=== PATIENT | male | born 1970 | race Caucasian/White ===

== ENCOUNTER 2018-11-15 01:33 | Outpatient (CLI) | payer OTHER, SELFPAY ==
[2018-11-15 15:25] LABS: Anion Gap 11.5 mmol/L (3-11); BUN 28 mg/dL (7-18); CO2 28.5 mmol/L (21.0-32.0); CREATININE 1.44 mg/dL (0.70-1.30); Calcium 9.4 mg/dL (8.5-10.1); Chloride 103 mmol/L (98-107); Estimated GFR 52.58 (mL/min/1.73m2); Glucose 132 mg/dL (70-100); Potassium 3.9 mmol/L (3.5-5.1); Sodium 143 mmol/L (136-145)
== END 2018-11-15 01:53 ==
PROVIDERS: PCP Family Medicine; Visit Provider Family Medicine
DX: I10 Essential (primary) hypertension (principal)
CPT/HCPCS: 36415; 80048

== ENCOUNTER 2020-07-31 06:51 | Emergency (ER) | payer OTHER, SELFPAY ==
[2020-07-31 06:58] VITALS: BP 160/102; PULSE 89; RESP 16; TEMP 37.1; O2SAT 97
--- NOTE | 2020-07-31 06:59 | W.ED.GENAD ---
Discharge Plan Disposition Patient Disposition: HOME Condition: Stable Discharge Details Clinical Impression: Knee pain, right Primary Care Provider: Ariana Mccarthy ED Provider: Kana Griffin Home Meds and New Rx's Prescriptions: Continued omeprazole 10 mg capsule,delayed release(DR/EC) 10 mg PO DAILY PRN (Reason: gerd) Qty: 60 RF: 0 chlorthalidone 25 mg tablet 25 mg PO DAILY Qty: 90 RF: 4 Discharge Instructions Instructions: Knee Pain (ED) Additional Instructions: take tylenol and ibuprofen as needed for pain, follow dosing instructions on packaging follow up with orthopedics if pain continues if severe worsening pain or fevers return to the emergency department Referrals: Quan Hadley MD [ [facility] STAFF PHYSICIAN] - Medical Decision Making 49 yo male with hx of htn comes in with right knee pain. He states he has had intermittent knee problems for quite some time and the right knee has been having aches for a week. He was going down his stairs when his knee popped causing pain and he fell down a step and caught himself. Denies hitting head or loc and no preceding symptoms such as chest pain, dyspnea, n/v, abdominal pain. He has full rom of the knee without swelling and no erythema or warmth. Suzan distal senastion and pulses. Has pain along both the lateral and medial joint lines, suspect sprain vs meniscus injury but will xray to evaluate for fx. No findings to suggest septic joint xray negative on my read, stable exam. Offered crutches and knee brace but he declines as he has both at home. Will have him f/u with orthopedics and return precautions given Medical Records Medical records reviewed: Yes I reviewed the patient's medical records. Imaging Data Radiologic Study: Attestation: I personally reviewed and interpreted this imaging study as follows: Imaging: X-Ray My impression: no acute findings HPI General Mode of arrival: wheelchair. Date/Time Provider Initiated Documentation: 07/31/20 06:52. Limitations to Documentation: no limitations. Information obtained by: patient. History of Present Illness 49 year old M presents to the emergency department with the chief complaint of right knee pain, described as moderate, Patient started experiencing this week(s) (1) and it has been constant. Rest improves symptom(s), Movement worsens symptoms . Patient notes no other symptoms.. Patient did receive the following treatments prior to arrival, NSAID Related Data Home Medications Medication Instructions Recorded Confirmed omeprazole 10 mg capsule,delayed 10 mg PO DAILY PRN #60 cap 11/09/18 07/31/20 release chlorthalidone 25 mg tablet 25 mg PO DAILY #90 tab-cap 05/01/20 07/31/20 Previous Rx's Medication Instructions Recorded omeprazole 10 mg capsule,delayed 10 mg PO DAILY PRN #60 cap 11/09/18 release chlorthalidone 25 mg tablet 25 mg PO DAILY #90 tab-cap 05/01/20 Allergies Allergy/AdvReac Type Severity Reaction Status Date / Time bee pollen Allergy Severe ANAPHYACTIC Unverified 07/31/20 07:03 Review of Systems All systems reviewed & are unremarkable except as noted in HPI and below Constitutional Constitutional: Denies chills, Denies fever(s) and Denies weakness Cardiovascular Cardiovascular: Denies chest pain and Denies dyspnea Respiratory Respiratory: Denies cough and Denies dyspnea Gastrointestinal Gastrointestinal: Denies abdominal pain, Denies nausea and Denies vomiting Musculoskeletal Musculoskeletal: Denies joint swelling Neurologic Neurologic: Denies weakness [facility] Medical History (Updated 07/31/20 @ 07:10 by Kana Griffin MD) Essential hypertension Hyperlipidemia Surgical History (Updated 06/04/20 @ 09:56 by Ariana Mccarthy NP) Status post right foot surgery Right club foot corrective surgery Family History Mother Essential hypertension Father Essential hypertension Stroke Hyperlipidemia Social History (Updated 11/10/18 @ 08:52 by Siva Gutierrez) Smoking/Tobacco Use Status: Current every day Tobacco Type: cigarettes and cigars Smoking risk assessment performed?: Yes Alcohol Intake: current Alcohol Intake frequency: a few times a week Alcohol type: hard liquor Substance use type: does not use Current gender identity: decline to answer What is your relationship status?: refused to answer How often do you talk on the phone with friends or family?: decline to answer How often do you get together with friends or relatives?: decline to answer How often do you attend shinto or latter day services?: decline to answer Do you belong to any clubs or organized social groups?: decline to answer Panel score (0-1 are the most socially isolated patients): 0 What type of physical activity do you participate in: decline to answer Duration: decline to answer Frequency: decline to answer Milli/Cheondoism: No preference Special milli needs: No Exam Const General: no acute distress Orientation: alert HENMT Head: normal to inspection Ears: external ears normal General nose exam: external nose normal Mouth: moist mucous membranes Eyes General: appearance normal, both eyes and all related structures Neck Neck: normal visual inspection Resp Effort & Inspection: normal respiratory effort and able to speak in complete sentences Cardio Rate: regular rate Skin General skin exam: no rashes or lesions noted Neuro General: patient alert and patient oriented x3 Extrem General: full ROM and capillary refill normal Psych Mental Status: mental status grossly normal
--- NOTE | 2020-07-31 07:23 | DI.RAD_ITS ---
EXAM: XR KNEE RT 3V AP,LAT,JO ANN CLINICAL HISTORY: pain, fall TECHNIQUE: COMPARISON: No exams were available for comparison FINDINGS: Four views were obtained. There is no evidence of fracture or dislocation. IMPRESSION: RADIATION DOSE DELIVERED: Total DLP Total DLP
--- NOTE | 2020-07-31 07:32 | DI.VRAD_ITS ---
PROCEDURE INFORMATION: Exam: XR Right Knee Exam date and time: 07/31/2020 7:24 AM Age: 49 years old Clinical indication: Injury or trauma; Sprain or strain; Patella or knee; Right; Patient HX: Pain anterior knee, S/P fall TECHNIQUE: Imaging protocol: XR Right knee. Views: 3 views. COMPARISON: No relevant prior studies available. FINDINGS: Bones/joints: Normal. Soft tissues: Normal. IMPRESSION: No acute findings. Dictated and Authenticated by: Oz Anderson MD. Ordering:ANGELA Roger MD
== END 2020-07-31 07:36 | disposition home or self-care (01) ==
PROVIDERS: Emergency Provider Emergency Medicine; PCP Nurse Practitioner Family
DX: M25.561 Pain in right knee (principal); I10 Essential (primary) hypertension
CPT/HCPCS: 73562; 99283

== ENCOUNTER 2022-01-04 07:41 | Emergency (ER) | payer OTHER, SELFPAY ==
[2022-01-04 07:46] VITALS: BP 158/89; RESP 108; TEMP 36.3; O2SAT 94
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
[2022-01-04] MEDS: Silver sulfaDIAZINE 1% 25 GM TUBE TP (09:05)
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
== END 2022-01-04 09:09 | disposition home or self-care (01) ==
PROVIDERS: Emergency Provider Physician Assistant; PCP Nurse Practitioner Family
DX: T21.25XA Burn of second degree of buttock, initial encounter (principal); T21.24XA Burn of second degree of lower back, initial encounter; X03.3XXA Fall due to controlled fire, not in building or structure, initial encounter; T31.0 Burns involving less than 10% of body surface
CPT/HCPCS: 99283

== ENCOUNTER 2022-09-03 03:16 | Outpatient (CLI) | payer OTHER, SELFPAY ==
[2022-09-03 09:01] LABS: Hemoglobin A1C 5.7 % (<5.7)
[2022-09-03 09:36] LABS: ALT 97 U/L (16-63); AST 60 U/L (15-37); Albumin 4.1 g/dL (3.4-5.0); Alkaline Phosphatase 77 U/L (46-116); Anion Gap 9.7 mmol/L (3-11); BUN 22 mg/dL (7-18); Bilirubin, Total 0.6 mg/dL (0.2-1.0); CO2 29.3 mmol/L (21.0-32.0); CREATININE 1.2 mg/dL (0.70-1.30); Calcium 9.1 mg/dL (8.5-10.1); Calculated LDL 132 mg/dL (<100); Chloride 101 mmol/L (98-107); Cholesterol 232 mg/dL (<200); Estimated GFR 73.67 (mL/min/1.73m2); Glucose 113 mg/dL (74-106); HDL Cholesterol 51 mg/dL (40-60); Potassium 3.6 mmol/L (3.5-5.1); Sodium 140 mmol/L (136-145); Total Protein 7.8 g/dL (6.4-8.2); Triglyceride 249 mg/dL (<150)
[2022-09-03 17:54] LABS: PSA, Screening 0.5 ng/mL (<=3.5)
== END 2022-09-03 03:17 | disposition home or self-care (01) ==
LOC: LBO 03:16
PROVIDERS: PCP Nurse Practitioner Family; Visit Provider Nurse Practitioner Family
DX: E78.5 Hyperlipidemia, unspecified (principal); I10 Essential (primary) hypertension
CPT/HCPCS: 36415; 80053; 80061; 84153; 83036

== ENCOUNTER 2023-06-03 13:53 | Outpatient (CLI) | payer OTHER, SELFPAY ==
[2023-06-03 11:07] LABS: ALT 28 U/L (16-63); AST 25 U/L (15-37); Albumin 3.7 g/dL (3.4-5.0); Alkaline Phosphatase 79 U/L (46-116); Bilirubin, Direct 0.1 mg/dL (0.0-0.2); Bilirubin, Total 0.4 mg/dL (0.2-1.0); Total Protein 7.4 g/dL (6.4-8.2)
[2023-06-03 11:14] LABS: Hemoglobin A1C 5.6 % (<5.7)
[2023-06-03 11:18] LABS: Calculated LDL 130 mg/dL (<100); Cholesterol 210 mg/dL (<200); HDL Cholesterol 58 mg/dL (40-60); Triglyceride 111 mg/dL (<150)
== END 2023-06-03 13:54 | disposition home or self-care (01) ==
LOC: LBO 13:53
PROVIDERS: PCP Nurse Practitioner Family; Visit Provider Nurse Practitioner Family
DX: R79.89 Other specified abnormal findings of blood chemistry (principal); E78.5 Hyperlipidemia, unspecified; R73.03 Prediabetes
CPT/HCPCS: 36415; 80061; 80076; 83036

== ENCOUNTER 2024-09-05 17:25 | Outpatient (CLI) | payer OTHER, SELFPAY ==
[2024-09-05 15:15] LABS: HCT 46.6 % (40.0-50.0); MCH 31.1 pg (27.0-33.0); MCHC 34.3 % (32.0-36.0); MCV 91 fL (80-95); MPV 10.2 fL (8.0-11.0); Platelet Count 209 10^3/uL (130-400); RBC 5.14 10^6/uL (4.36-5.78); RDW 11.6 % (11.8-14.1); WBC 9.59 10^3/uL (4.4-10.8)
[2024-09-05 16:02] LABS: Anion Gap 10.8 mmol/L (3-11); BUN 35 mg/dL (7-18); CO2 28.2 mmol/L (21.0-32.0); CREATININE 1.5 mg/dL (0.70-1.30); Calcium 9.7 mg/dL (8.5-10.1); Calculated LDL 128 mg/dL (<100); Chloride 102 mmol/L (98-107); Cholesterol 240 mg/dL (<200); Estimated GFR 55.67 (mL/min/1.73m2); Glucose 126 mg/dL (74-106); HDL Cholesterol 57 mg/dL (40-60); Potassium 3.1 mmol/L (3.5-5.1); Sodium 141 mmol/L (136-145); TSH (W/Ref FT4) 1.08 uIU/mL (0.36-3.74); Triglyceride 275 mg/dL (<150)
[2024-09-05 23:03] LABS: PSA, Screening 0.5 ng/mL (<=3.5)
[2024-09-06 10:57] LABS: HIV-1/2 Ag & Ab Screen Negative (Negative)
[2024-09-06 11:00] LABS: HBs Antibody, Quant <3.1 mIU/mL (See Note); Hep B Surface Ab Negative (See Note); Hepatitis B Core Antibody Negative (Negative); Hepatitis B Surface Antigen Negative (Negative)
[2024-09-06 11:07] LABS: Hepatitis C Ab w Rflx HCV PCR Negative (Negative)
== END 2024-09-05 17:26 | disposition home or self-care (01) ==
LOC: LBO 17:25
PROVIDERS: PCP Nurse Practitioner Family; Visit Provider Nurse Practitioner Family
DX: Z11.59 Encounter for screening for other viral diseases (principal); E78.5 Hyperlipidemia, unspecified; I10 Essential (primary) hypertension; Z11.4 Encounter for screening for human immunodeficiency virus [HIV]; Z12.5 Encounter for screening for malignant neoplasm of prostate
CPT/HCPCS: 36415; 80048; 80061; 84153; 85027; 86704; 86706; 86803; 87340; 87389; 84443

== ENCOUNTER 2024-12-22 03:46 | Outpatient (CLI) | payer OTHER, SELFPAY ==
[2024-12-22 12:27] LABS: Anion Gap 9.2 mmol/L (3-11); BUN 28 mg/dL (7-18); CO2 29.8 mmol/L (21.0-32.0); CREATININE 1.3 mg/dL (0.70-1.30); Calcium 9.6 mg/dL (8.5-10.1); Chloride 102 mmol/L (98-107); Estimated GFR 65.69 (mL/min/1.73m2); Glucose 122 mg/dL (74-106); Potassium 3.6 mmol/L (3.5-5.1); Sodium 141 mmol/L (136-145)
== END 2024-12-22 03:47 | disposition home or self-care (01) ==
LOC: LOS 03:46
PROVIDERS: PCP Nurse Practitioner Family; Visit Provider Nurse Practitioner Family
DX: I10 Essential (primary) hypertension (principal)
CPT/HCPCS: 36415; 80048

== ENCOUNTER 2025-05-02 13:54 | Emergency (ER) | payer OTHER, SELFPAY ==
[2025-05-02 14:06] VITALS: BP 161/89; PULSE 89; RESP 18; TEMP 37.2; O2SAT 90
--- NOTE | 2025-05-02 14:29 | W.ED.GENAD ---
Discharge Plan Disposition Patient Disposition: Home Condition: Good Discharge Details Clinical Impression: Laceration of scalp Primary Care Provider: Ariana Mccarthy ED Provider: Lisset Baker Home Meds and New Rx's Prescriptions: Continued omeprazole 10 mg capsule,delayed release(DR/EC) 10 mg PO DAILY PRN (Reason: gerd) Qty: 60 0RF chlorthalidone 25 mg tablet 25 mg PO DAILY Qty: 90 3RF Rx Instructions: Half a tablet for one week then increase to 1 tablet daily amlodipine 10 mg tablet 10 mg PO DAILY Qty: 90 3RF sildenafil [Viagra] 50 mg tablet 50 mg PO DAILY PRN (Reason: sexual activity) Qty: 30 3RF Rx Instructions: administer 1 to 4 hours before activity potassium chloride 20 mEq tablet extended release 20 meq PO DAILY Qty: 90 3RF magnesium oxide 500 mg capsule 500 mg PO DAILY Discharge Instructions Instructions: Laceration Repair With Stitches ED Additional Instructions: Your wound was closed with sutures. There is no foreign body or debris noted in the wound he did appear overall clean but did have some jagged edges. This is leading to be concern for potential scarring but the suture tape should help with wound healing and prevention of further bleeding. Please monitor wound for signs infection including redness, warmth, drainage, fever/chills. If you develop these or other new/worsening symptoms, please seek care urgently once again. You may wash with running water but do not soak or submerge as it can increase your risk of infection. Wash with typical running water and soap. During work, please apply bacitracin and Band-Aid under your hat prevent any debris or contaminant from getting into the wound. Please return in 1 week for reevaluation and removal of your sutures. Referrals: Ariana Mccarthy, CHIDI [Primary Care Provider, Medicine] Discharge Data Discharge Date/Time-TO BE ENTERED AT DEPARTURE: 05/02/25 15:14 HPI General Date/Time Provider Initiated Documentation: 05/02/25 14:29. Limitations to Documentation: no limitations. Information obtained by: patient and RN notes reviewed. History of Present Illness 54 year old M presents to the emergency department with the chief complaint of scalp laceration, described as moderate, Quality is described as aching, and is localized to the head. Patient reports no radiation. Patient started experiencing this minute(s) No relieving factors improve symptom(s), No exacerbating factors reported . Patient notes no other symptoms.. Patient did receive the following treatments prior to arrival, none Related Data Home Medications ?Medication ?Instructions ?Recorded ?Confirmed omeprazole 10 mg capsule,delayed 10 mg PO DAILY PRN gerd #60 caps 11/09/18 05/02/25 release sildenafil 50 mg tablet (Viagra) 50 mg PO DAILY PRN sexual activity 04/21/24 05/02/25 #30 tabs chlorthalidone 25 mg tablet 25 mg PO DAILY #90 tabs 06/22/24 05/02/25 magnesium oxide 500 mg capsule 500 mg PO DAILY 09/06/24 05/02/25 potassium chloride 20 mEq 20 meq PO DAILY #90 tabs 09/06/24 05/02/25 tablet,extended release amlodipine 10 mg tablet 10 mg PO DAILY #90 tabs 12/21/24 05/02/25 Previous Rx's ?Medication ?Instructions ?Recorded omeprazole 10 mg capsule,delayed 10 mg PO DAILY PRN gerd #60 caps 11/09/18 release sildenafil 50 mg tablet (Viagra) 50 mg PO DAILY PRN sexual activity 04/21/24 #30 tabs chlorthalidone 25 mg tablet 25 mg PO DAILY #90 tabs 06/22/24 potassium chloride 20 mEq 20 meq PO DAILY #90 tabs 09/06/24 tablet,extended release amlodipine 10 mg tablet 10 mg PO DAILY #90 tabs 12/21/24 Allergies Allergy/AdvReac Type Severity Reaction Status Date / Time venom-wasp Allergy Severe Anaphylaxis Verified 05/02/25 14:05 General Stated Complaint: Laceration MAXIMILIAN: 4 Review of Systems Constitutional Constitutional: Reports as per HPI, Denies fever(s), Denies headache(s) and Denies malaise Eyes Eyes: Denies change in vision ENT Ears, Nose, Mouth, and Throat: Denies headache(s) Musculoskeletal Musculoskeletal: Reports as per HPI Integumentary/Breasts Skin/Breast: Reports as per HPI Neurologic Neurologic: Reports as per HPI, Denies headache(s), Denies sensory deficit and Denies paresthesias Exam Const General: cooperative, healthy appearing, comfortable, no acute distress and well developed Nutritional Appearance: average body habitus and well nourished Orientation: alert and awake [facility] Head images:  1. Area of curvilinear laceration. Lacerations about 5 cm in length. No continued bleeding. No deep structure involvement. No foreign body debris noted. To the patient's right, the wound is slightly irregular but the left side is very crisp and while there is a slight curve, it is predominantly very straight laceration. Sensation is intact. Resp Effort & Inspection: normal respiratory effort, able to speak in complete sentences and no respiratory distress Cardio Rate: regular rate Rhythm: regular rhythm Neuro General: patient alert and patient awake Cognition: normal cognition Speech: speech normal Gait: normal gait Sensory Exam: no sensory deficits noted Course Vital Signs Vital signs: Vital Signs Temperature 37.2 C 05/02/25 14:06 Pulse 89 05/02/25 14:06 Respiratory Rate 18 05/02/25 14:06 Blood Pressure 161/89 H 05/02/25 14:06 Pulse Oximetry 90 L 05/02/25 14:06 Temperature 37.2 C 05/02/25 14:06 Temperature Source Temporal Artery Scan 05/02/25 14:06 Pulse 89 05/02/25 14:06 Respiratory Rate 18 05/02/25 14:06 Blood Pressure 161/89 H 05/02/25 14:06 Blood Pressure Position Sitting 05/02/25 14:06 Pulse Oximetry 90 L 05/02/25 14:06 Oxygen Delivery Method Room Air 05/02/25 14:06 Oxygen Flow Rate 0 05/02/25 14:06 Pain Level 0 05/02/25 14:06 Procedure Laceration Laceration 1: Date of Procedure: 05/02/25 Time of procedure: 14:59 Provider that performed the procedure: Lisset Baker Patient Consented: Verbally Site: scalp Description: linear Depth: simple, single layer Local anesthetic: Lidocaine 1% Amount of anesthesia used (mL): 6 Pre-repair:: wound explored, irrigated extensively and deep structures intact Skin layer closed with: nylon Suture size: 5-0 Number of sutures:: 1 Technique: running (locking) Medical Decision Making Patient is a pleasant 54-year-old gentleman presenting chief complaint of scalp laceration that he sustained when he excellently walked into a piece of metal while at work. He denies other injury at the time of the incident. Did not lose consciousness. No headache. Denies any visual changes, nausea, vomiting, sensory deficits, weakness. Patient did not fall. Tetanus will need to be updated. On exam, patient is a 5 cm linear laceration to the crown of his head. No other injuries appreciated. He does have some soft tissue swelling. No deep structure involvement. Patient I discussed with/benefit/alternatives and as well as expected procedural steps associated with suture closure. Patient voiced understanding and wished to proceed. Please see procedure note. Wound was explored to base in a bloodless field no foreign body or debris noted. Patient was anesthetized with 1% lidocaine plain with epinephrine which provided a good anesthetic effect. Wound was then copiously irrigated and closed using standard sterile technique using a locking baseball stitch. Patient tolerated this well. Tetanus was updated. Patient I discussed wound care. We discussed return precautions. Patient will return in 1 week for removal of his sutures. Signs symptoms of infection were discussed and he will return should any of these develop. All of his questions and concerns were addressed and he is in agreement this plan. [facility] All Active Problems (Updated 05/02/25 @ 15:00 by BOO Sage) Laceration of scalp (Acute) Hyperlipidemia (Chronic) Essential hypertension (Chronic) Surgical History Status post right foot surgery Right club foot corrective surgery Family History (Updated 09/15/24 @ 07:59 by Ariana Mccarthy NP) Mother Hypertension Father , 74 from complications of heart surgery Stroke Hyperlipidemia Hypertension Congenital heart defect Sister Congenital heart defect Son No problems noted. Maternal Grandfather Heart disease Maternal Grandmother Asthma Paternal Grandfather No problems noted. Paternal Grandmother No problems noted. Social History (Updated 12/21/24 @ 14:42 by Bridget Hammond) Smoking/Tobacco Use Status: Current-Occasional Tobacco Type: cigars Per week: 6 Quit status: has quit before Second Hand Exposure: Yes Counseling given: provider counseling Smoking risk assessment performed?: Yes Alcohol Intake: current Alcohol Intake frequency: a few times a week Alcohol type: beer and hard liquor Details: 6 or more drinks monthly or less Drug use: Rarely Substance use type: marijuana Counseling given: No Caregiver/Support person: No Household members: spouse Housing: house Communication Needs: None Do you need help understanding health information?: Never Pets and animals: No Do you think of yourself as: straight/heterosexual Current gender identity: male What is your relationship status?: How often do you talk on the phone with friends or family?: decline to answer How often do you get together with friends or relatives?: decline to answer How often do you attend christianity or evangelical services?: decline to answer Do you belong to any clubs or organized social groups?: decline to answer Panel score (0-1 are the most socially isolated patients): 1 What type of physical activity do you participate in: decline to answer Duration: decline to answer Frequency: decline to answer Milli/Yazidism: No preference Special milli needs: No Seatbelt use: sometimes Helmet use: Yes Helmet use: sometimes Drive intox or ride w/intox cryogenic transport driver: No Do you feel safe at home: Yes Do you feel safe in your relationship?: Yes
[2025-05-02] MEDS: Diph,Pertuss(Acell),Tet Vac/Pf 0.5 ML SYR IM (14:40)
[2025-05-02] MEDS: Lidocaine 1% Pres-Free W/EPI 1/200,000 30 ML VIAL IJ (14:40)
== END 2025-05-02 15:14 | disposition home or self-care (01) ==
PROVIDERS: Emergency Provider Physician Assistant; PCP Nurse Practitioner Family
DX: S01.01XA Laceration without foreign body of scalp, initial encounter (principal); W22.8XXA Striking against or struck by other objects, initial encounter
CPT/HCPCS: 90471; 12002; 90715; J2004

== ENCOUNTER 2025-05-10 08:38 | Emergency (ER) | payer SELFPAY ==
[2025-05-10 08:42] VITALS: BP 150/90; PULSE 88; RESP 16; TEMP 36.3; O2SAT 97
--- NOTE | 2025-05-11 08:19 | W.ED.GENAD ---
Discharge Plan Discharge Details Chief Complaint: SutureRem Primary Care Provider: Ariana Mccarthy ED Provider: Ness Fleming Home Meds and New Rx's Prescriptions: No Action omeprazole 10 mg capsule,delayed release(DR/EC) 10 mg PO DAILY PRN (Reason: gerd) Qty: 60 0RF chlorthalidone 25 mg tablet 25 mg PO DAILY Qty: 90 3RF Rx Instructions: Half a tablet for one week then increase to 1 tablet daily amlodipine 10 mg tablet 10 mg PO DAILY Qty: 90 3RF sildenafil [Viagra] 50 mg tablet 50 mg PO DAILY PRN (Reason: sexual activity) Qty: 30 3RF Rx Instructions: administer 1 to 4 hours before activity potassium chloride 20 mEq tablet extended release 20 meq PO DAILY Qty: 90 3RF magnesium oxide 500 mg capsule 500 mg PO DAILY Discharge Data Discharge Date/Time-TO BE ENTERED AT DEPARTURE: 05/10/25 10:42 HPI General Date/Time Provider Initiated Documentation: 05/10/25 08:43. HPI Narrative: This 54-year-old male presents with laceration to scalp for suture removal. Denies any additional complaints specifically denies any headache or dizziness. Related Data Home Medications ?Medication ?Instructions ?Recorded ?Confirmed omeprazole 10 mg capsule,delayed 10 mg PO DAILY PRN gerd #60 caps 11/09/18 05/02/25 release sildenafil 50 mg tablet (Viagra) 50 mg PO DAILY PRN sexual activity 04/21/24 05/02/25 #30 tabs chlorthalidone 25 mg tablet 25 mg PO DAILY #90 tabs 06/22/24 05/02/25 magnesium oxide 500 mg capsule 500 mg PO DAILY 09/06/24 05/02/25 potassium chloride 20 mEq 20 meq PO DAILY #90 tabs 09/06/24 05/02/25 tablet,extended release amlodipine 10 mg tablet 10 mg PO DAILY #90 tabs 12/21/24 05/02/25 Previous Rx's ?Medication ?Instructions ?Recorded omeprazole 10 mg capsule,delayed 10 mg PO DAILY PRN gerd #60 caps 11/09/18 release sildenafil 50 mg tablet (Viagra) 50 mg PO DAILY PRN sexual activity 04/21/24 #30 tabs chlorthalidone 25 mg tablet 25 mg PO DAILY #90 tabs 06/22/24 potassium chloride 20 mEq 20 meq PO DAILY #90 tabs 09/06/24 tablet,extended release amlodipine 10 mg tablet 10 mg PO DAILY #90 tabs 12/21/24 Allergies Allergy/AdvReac Type Severity Reaction Status Date / Time venom-wasp Allergy Severe Anaphylaxis Verified 05/02/25 14:05 General Stated Complaint: SutureRem MAXIMILIAN: 4 Exam Narrative Exam Narrative: Is a 54-year-old male presenting with scalp laceration. He has a running stitch in place no dehiscence and wound appears to be healing well Course Vital Signs Vital signs: Vital Signs Temperature 36.3 C L 05/10/25 08:42 Pulse 88 05/10/25 08:42 Respiratory Rate 16 05/10/25 08:42 Blood Pressure 150/90 H 05/10/25 08:42 Pulse Oximetry 97 05/10/25 08:42 Temperature 36.3 C L 05/10/25 08:42 Temperature Source Oral 05/10/25 08:42 Pulse 88 05/10/25 08:42 Respiratory Rate 16 05/10/25 08:42 Blood Pressure 150/90 H 05/10/25 08:42 Blood Pressure Position Sitting 05/10/25 08:42 Pulse Oximetry 97 05/10/25 08:42 Oxygen Delivery Method Room Air 05/10/25 08:42 Oxygen Flow Rate 0 05/10/25 08:42 Pain Level 0 05/10/25 08:42 Medical Decision Making Alert and oriented 54-year-old male in no acute distress. Running stitch was removed by me. Of note, wound appears to be well-closed with scab formation however when the stitch was removed, the wound dehisced slightly and so I cleansed the wound and placed some Steri-Strips for the next several days. Return precautions reviewed and patient expressed understanding PFSH All Active Problems (Updated 05/02/25 @ 15:00 by BOO Sage) Laceration of scalp (Acute) Hyperlipidemia (Chronic) Essential hypertension (Chronic) Surgical History Status post right foot surgery Right club foot corrective surgery Family History (Updated 09/15/24 @ 07:59 by Ariana Mccarthy NP) Mother Hypertension Father , 74 from complications of heart surgery Stroke Hyperlipidemia Hypertension Congenital heart defect Sister Congenital heart defect Son No problems noted. Maternal Grandfather Heart disease Maternal Grandmother Asthma Paternal Grandfather No problems noted. Paternal Grandmother No problems noted. Social History (Updated 12/21/24 @ 14:42 by Bridget Hammond) Smoking/Tobacco Use Status: Current-Occasional Tobacco Type: cigars Per week: 6 Quit status: has quit before Second Hand Exposure: Yes Counseling given: provider counseling Smoking risk assessment performed?: Yes Alcohol Intake: current Alcohol Intake frequency: a few times a week Alcohol type: beer and hard liquor Details: 6 or more drinks monthly or less Drug use: Rarely Substance use type: marijuana Counseling given: No Caregiver/Support person: No Household members: spouse Housing: house Communication Needs: None Do you need help understanding health information?: Never Pets and animals: No Do you think of yourself as: straight/heterosexual Current gender identity: male What is your relationship status?: How often do you talk on the phone with friends or family?: decline to answer How often do you get together with friends or relatives?: decline to answer How often do you attend voodoo or voodoo services?: decline to answer Do you belong to any clubs or organized social groups?: decline to answer Panel score (0-1 are the most socially isolated patients): 1 What type of physical activity do you participate in: decline to answer Duration: decline to answer Frequency: decline to answer Milli/Yarsanism: No preference Special milli needs: No Seatbelt use: sometimes Helmet use: Yes Helmet use: sometimes Drive intox or ride w/intox combine driver: No Do you feel safe at home: Yes Do you feel safe in your relationship?: Yes
== END 2025-05-10 10:42 | disposition home or self-care (01) ==
PROVIDERS: Emergency Provider Physician Assistant; PCP Nurse Practitioner Family
DX: S01.01XD Laceration without foreign body of scalp, subsequent encounter (principal); X58.XXXD Exposure to other specified factors, subsequent encounter